=== PATIENT | female | born 1960 | race Caucasian/White ===

== ENCOUNTER 2021-08-04 06:37 | Day surgery (SDC) | payer MEDICAID ==
[~2021-08-04] VITALS: Ht 162.6 cm; Wt 49.5 kg
[~2021-08-04 06:37] MED LIST: SODIUM CHLORIDE 0.9% 1,000 ML ONE
[2021-08-04] MEDS ORDERED: SODIUM CHLORIDE 0.9% 1,000 ML IV ONE (07:00)
[2021-08-04 07:02] LABS: COVID AG,FIA SOURCE NASOPHARYNGEAL
[2021-08-04] MEDS ORDERED: MIDAZOLAM HCL 5 MG/ML VIAL ONE (07:19)
[2021-08-04] MEDS ORDERED: FentaNYL CITRATE PF 100 MCG/2 ML VIAL ONE (07:19)
[2021-08-04] MEDS ORDERED: LEVO100 PO (07:49)
[2021-08-04] MEDS ORDERED: ESCI20TA87 PO (07:49)
[2021-08-04] MEDS ORDERED: MethylPREDNISolone SOD SUCC 125 MG/2 ML VIAL ONE (08:53)
[2021-08-04] MEDS ORDERED: MethylPREDNISolone SOD SUCC 125 MG/2 ML VIAL IVP ONE (09:30)
[2021-08-04] MEDS ORDERED: OXYGEN THERAPY IH SCH (20:00)
== END 2021-08-04 11:22 | disposition home or self-care (01) ==
LOC: SURGERY 06:37
PROVIDERS: ATTEND Internal Medicine Critical Care Medicine
DX: J38.4 Edema of larynx (principal); B37.0 Candidal stomatitis; M19.90 Unspecified osteoarthritis, unspecified site; F32.9 Major depressive disorder, single episode, unspecified; F41.9 Anxiety disorder, unspecified; Z87.891 Personal history of nicotine dependence; Z98.890 Other specified postprocedural states; Z87.01 Personal history of pneumonia (recurrent); Z79.899 Other long term (current) drug therapy; Z72.89 Other problems related to lifestyle; Z20.822 Contact with and (suspected) exposure to COVID-19
CPT/HCPCS: 31623; 31624; 71045; 87015; 87070; 87101; 87205; 87206; 87220; 87426; 88112; 88184; 88185; 88312; C9803; J2250; J2930; J3010; J7030